=== PATIENT | female | born 1940 | race Caucasian/White ===

== ENCOUNTER 2017-02-05 15:12 | Outpatient (CLI) | payer MEDICARE, OTHER ==
--- NOTE | 2017-02-05 15:36 | RAD ---
LUMBAR SPINE 3 VIEWS: Date: 02/05/17 HISTORY: Low back pain. FINDINGS: Mild degenerative changes are present with levoscoliosis. No acute fracture, subluxation, or bony erik truction is identified. There is suggestion of postop change at L4 level. IMPRESSION: Lumbar spondylosis. POS: [facility]
== END 2017-02-05 15:13 | disposition home or self-care (01) ==
LOC: RAD-FRANK 15:12
PROVIDERS: ATTEND Nurse Practitioner Family
DX: M54.5 Low back pain (principal); M47.816 Spondylosis without myelopathy or radiculopathy, lumbar region
CPT/HCPCS: 72100